=== PATIENT | male | born 1940 | race Caucasian/White ===

== ENCOUNTER 2017-01-19 15:05 | Inpatient (IN) | payer MEDICARE, OTHER ==
[2017-01-19 15:47] LABS: BASOPHILS 0.1 % (0.0-2.0); HEMATOCRIT 26.8 % (42.0-54.0); HEMOGLOBIN 9.2 g/dL (14.0-18.0); LYMPHOCYTES 3.7 % (20.0-40.0); LYMPHOCYTES# 0.5 X 10^3uL (0.8-3.8); MEAN CELL VOLUME 94.6 fL (80.0-100.0); MEAN CORPUS. HGB CONCENTRATION 34.4 g/dL (32.0-36.0); MEAN CORPUSCULAR HEMOGLOBIN 32.5 pg (29.0-35.0); MEAN PLATELET VOLUME 7.4 fL (7.4-10.4); MONOCYTES 13.4 % (2.0-10.0); MONOCYTES# 1.7 X 10^3uL (0.2-1.0); NEUTROPHILS 82.8 % (54.0-75.0); NEUTROPHILS# 10.2 X 10^3uL (2.6-6.7); RED BLOOD COUNT 2.83 X 10^6uL (4.20-6.10); WHITE BLOOD COUNT 12.4 X 10^3uL (3.9-10.7)
[2017-01-19 15:57] LABS: RED CELL DISTRIBUTION WIDTH 16.5 % (11.5-14.5)
[2017-01-19 15:58] LABS: A/G RATIO 0.9; ALBUMIN 3.4 g/dL (3.5-5.0); ALKALINE PHOSPHATASE 146 U/L (38-126); ALT 97 U/L (21-72); AST 111 U/L (17-59); BILIRUBIN, TOTAL 1.1 mg/dL (0.2-1.3); BLOOD UREA NITROGEN 11 mg/dL (9-20); CALCIUM 9.1 mg/dL (8.4-10.2); CHLORIDE 95 mmol/L (98-107); EST GLOMERULAR FILTRATION RATE > 60 mL/min; GLUCOSE 115 mg/dL (70-100); MAGNESIUM 2.2 mg/dL (1.6-2.3); PLATELET COUNT 738 X 10^3uL (130-440); POTASSIUM 3.5 mmol/L (3.5-5.1); SODIUM 133 mmol/L (137-145); TOTAL PROTEIN 7.4 g/dL (6.3-8.2)
[2017-01-19] MEDS ORDERED: ACETAMINOPHEN 500 MG TABLET PO ONE (16:22)
[2017-01-19] MEDS ORDERED: HOME MEDICATION LIST NEEDED 1 EA EACH MC ONE (17:33)
[2017-01-19] MEDS ORDERED: ALBUTEROL 0.083% 2.5 MG/3 ML VIAL.NEB NEB PRN (17:33)
[2017-01-19] MEDS ORDERED: AZITHROMYCIN 250 MG TABLET PO ONE (17:48)
[2017-01-19] MEDS ORDERED: cefTRIAXone SODIUM 1,000 MG/10 ML VIAL ONE (17:48)
[2017-01-19 17:50] LABS: BILIRUBIN, DIRECT 0.3 mg/dL (0.0-0.4); BILIRUBIN, TOTAL 1.1 mg/dL (0.2-1.3); TOTAL PROTEIN 6.4 g/dL (6.3-8.2)
[2017-01-19] MEDS ORDERED: NORMAL SALINE 100 ML IV ONE (17:52)
--- NOTE | 2017-01-19 18:15 | ER NURSING DOCUMENTATION ---
Nurse's Notes [facility] Name:Agusto Sesay Age:76 yrs Sex:Male :1940 Arrival Date:01/19/2017 Time:15:05 Bed4 Private MD:Chet Duarte Diagnosis:Pneumonia, Unspecified Presentation: 01/19 15:08 Presenting complaint: EMS states: pt with Altered Mental Status per medics, pt A and la Ox4 upon arrival to ED, unwitnessed fall, pt states he missed a stool when going to sit. Denies hitting head. pt with chronic neck pain and pain in his left shoulder, states left shoulder pain began this am before his fall. pt had a carotid stent placed at [facility] approx 12 days ago. Transition of care: Home. 15:08 Acuity: WARNER 2 la 15:08 Method Of Arrival: EMS: 410 la Triage Assessment: 15:15 General: Appears comfortable, Behavior is appropriate for age, cooperative. Pain: la Complains of pain in chronic neck, lidoderm patch on posterior neck, pain in left shoulder Alleviated by repositioning, Aggravated by increased activity, repositioning. EENT: No deficits noted. Neuro: Level of Consciousness is awake, alert, obeys commands, Oriented to person, place, time, event. Cardiovascular: No deficits noted. Respiratory: No deficits noted. Airway is patent Trachea midline Respiratory effort is even, unlabored, Respiratory pattern is regular, symmetrical, Breath sounds are clear bilaterally. GI: No deficits noted. : No deficits noted. Derm: No deficits noted. Musculoskeletal: Circulation, motion, and sensation intact Capillary refill < 3 seconds Range of motion limited in left shoulder. Historical: - Allergies: Pepcid; - Home Meds: 1. gabapentin oral 2. pravastatin oral 3. lupron 4. Omeprazole Oral - PMHx: lung cancer; - PSHx: Carotid surgery; - Tetanus: > 10 years. - Ebola Screening: : Patient negative for fever greater than or equal to 101.5 degrees Fahrenheit, and additional compatible Ebola Virus Disease symptoms. - Immunization history: Flu Vaccine < 1 year. - Social history: Smoking status: Patient uses tobacco products, current every day smoker. Screenin:17 Infectious Disease Risk None. Abuse screen: Denies threats or abuse. Nutritional la screening: No deficits noted. Assessment: 15:17 See Triage Assessment done by same RN. la 15:45 Reassessment: to xray. la Vital Signs: 15:14 Pulse Ox 98% on 2 lpm NC; la 15:14 BP 123 / 57 RA Supine; Pulse 93; Resp 18; Temp 101.7(O); Pulse Ox 79% on R/A; Weight la 65.77 kg (R); Height 5 ft. 10 in. (177.80 cm) (R); Pain 3/10; 16:01 BP 100 / 72 RA Supine; Pulse 85; Resp 18; Pulse Ox 95% on 2 lpm NC; Pain 3/10; la 17:31 BP 104 / 69 RA Supine; Pulse 93; Resp 18 S; Temp 98.9(O); Pulse Ox 93% on 2 lpm NC; la Pain 3/10; 17:48 BP 110 / 54 RA Supine; Pulse 85; Resp 18; Pulse Ox 94% on 2 lpm NC; Pain 3/10; la 18:09 BP 105 / 67 RA Sitting; Pulse 71; Resp 18; Temp 98.0(O); Pulse Ox 94% on 2 lpm NC; Pain la 3/10; 15:14 Body Mass Index 20.80 (65.77 kg, 177.80 cm) la Trauma Score (Adult): 15:10 Eye Response: spontaneous(1); Verbal Response: oriented(1); Motor Response: obeys la commands(2); Systolic BP: > 89 mm Hg(4); Respiratory Rate: 10 to 29 per min(4); Dolly Score: 15; Trauma Score: 12 ED Course: 15:05 Patient arrived in ED. em3 15:08 Angela Hathaway is Primary Nurse. la 15:10 Triage completed. la 15:10 Pulse Ox - RN Monitoring Only NIBP On - RN Monitoring Only. la 15:10 Maintain field IV. Dressing intact. Good blood return noted. Site clean & dry. Gauge & la site: 18g left AC. 15:10 unable to give urine sample at present. la 15:14 Chet Duarte MD is Private Physician. ds 15:14 Oxygen Oxygen administration via nasal cannula @ 2L/min. la 15:17 Valuables Remains with patient Patient has correct armband on for positive la identification. Placed in gown. Bed in low position. Call light in reach. Side rails up X2. Door closed. Verbal reassurance given. Warm blanket given. Pillow given. 15:19 Wojciech Dyson MD is Attending Physician. tl1 15:35 First set of blood cultures drawn by me. la 15:40 Second set of blood cultures drawn Earle EMT. la 16:35 All Skinner MD is Admitting Physician. tl1 18:01 Carla Cedeño MD motion picture projectionist apprentice. al Administered Medications: 16:13 Drug: Tylenol 1000 mg; Route: PO; la 16:24 Follow up: Response: No adverse reaction la 17:54 Follow up: Response: Temperature is decreased la 17:40 Dru grams of (cefTRIAXone 1 grams, NS 0.9% 100 ml); Route: IVPB; Infused Over: 30 la mins; Site: left antecubital; 17:54 Follow up: Response: No adverse reaction la 18:15 Follow up: IV Status: Infusion continued upon admission la 17:40 Drug: Zithromax 500 mg; Route: PO; la 17:54 Follow up: Response: No adverse reaction la Intake: 16:30 IV: 1000ml; Total: 1000ml. la Outcome: 16:57 Decision to Admit by Provider. tl1 18:12 Admitted to Med/surg accompanied by nurse. la 18:12 Condition: good 18:12 Report given to Krysten HUANG 18:12 Discharge Assessment: Patient awake, alert and oriented x 3. No cognitive and/or functional deficits noted. Patient verbalized understanding of disposition instructions. 18:14 Patient left the ED. la Signatures: Flor Sepulveda, Reg Reg ds Carla Cedeño MD MD al Meiklejohn, Earle em3 Angela Hathaway Tom, MD MD tl1
--- NOTE | 2017-01-19 19:37 | RADIOLOGY REPORT ---
Two views of the chest are compared with prior films dated 01/09/2013. The heart and vessels are stable and unremarkable. There has been interval development of bibasilar infiltrates, left greater than right. The upper lung rudolph are clear. No fluid or pneumothorax is seen. IMPRESSION: Development of bibasilar infiltrates, left greater than right. MTDD
--- NOTE | 2017-01-19 19:46 | RADIOLOGY REPORT ---
Trauma series of the cervical spine is obtained. Examination is markedly limited due to levoscoliosis and extensive diffuse degenerative changes throughout the disk spaces and posterior facets. No gross displaced injury is identified. Calcification of the carotid arteries is noted with left carotid stent also noted. IMPRESSION: Extensive chronic changes as described markedly limiting the examination. No gross displaced injury is identified. If there is any concern for traumatic injury, further evaluation with CT scanning is highly recommended for its markedly increased accuracy. The findings were personally reviewed with Dr. Cedeño at 1815 hours on 2016. JAMIE
[2017-01-19] MEDS: cefTRIAXone SODIUM 1,000 MG in NORMAL SALINE MINI-BAG+ 100 ML IV SCH (20:15)
[2017-01-19] MEDS: NORMAL SALINE 1,000 ML IV SCH (20:16)
[2017-01-19] MEDS: GUAIFENESIN ER 600 MG TABLET PO SCH (20:16)
[2017-01-19] MEDS: PRAVASTATIN SODIUM 40 MG TABLET PO SCH (21:50)
[2017-01-19] MEDS: GABAPENTIN 300 MG CAPSULE PO SCH (21:50)
[2017-01-19] MEDS ORDERED: O2 HUMIDIFIER 650 ML BOTTLE INHALATION ONE (22:12)
[2017-01-19 23:00] LABS: URINE MUCUS NONE SEEN (Up to 25%); URINE RBC NONE SEEN (0-5/hpf); URINE SQUAMOUS EPITHELIAL CELL NONE SEEN (<= 15/hpf)
[2017-01-19 23:10] LABS: URINE APPEARANCE CLEAR; URINE BACTERIA <10 ORGANISMS/hpf (<10/hpf); URINE BILIRUBIN 0.5 mg/100ml (1+) (NEGATIVE); URINE BLOOD NEGATIVE (NEGATIVE); URINE COLOR DARK YELLOW; URINE GLUCOSE NORMAL (NEGATIVE); URINE KETONE 5mg/dL (NEGATIVE); URINE LEUKOCYTE ESTERASE NEGATIVE (NEGATIVE); URINE NITRITE NEGATIVE (NEGATIVE); URINE PH 5.5 (5-7); URINE PROTEIN 30mg/dL (1+) (NEG - TRACE); URINE UROBILINOGEN 1mg/dL (Normal) (NEG-1mg/dL); URINE WBC 0-4/hpf (0-4/hpf)
[2017-01-19 23:11] LABS: URINE AMORPHOUS SEDIMENT UP TO 50%/lpf (Up to 25%)
[2017-01-20] MEDS: NORMAL SALINE 1,000 ML IV SCH (05:00)
[2017-01-20 06:07] LABS: BASOPHILS 0.4 % (0.0-2.0); EOSINOPHILS 0.1 % (0.0-6.0); HEMOGLOBIN 8.2 g/dL (14.0-18.0); LYMPHOCYTES 5.1 % (20.0-40.0); LYMPHOCYTES# 0.5 X 10^3uL (0.8-3.8); MEAN CELL VOLUME 95.5 fL (80.0-100.0); MEAN CORPUS. HGB CONCENTRATION 34.1 g/dL (32.0-36.0); MEAN CORPUSCULAR HEMOGLOBIN 32.6 pg (29.0-35.0); MONOCYTES 11.9 % (2.0-10.0); MONOCYTES# 1.3 X 10^3uL (0.2-1.0); NEUTROPHILS 82.5 % (54.0-75.0); NEUTROPHILS# 8.8 X 10^3uL (2.6-6.7); RED BLOOD COUNT 2.52 X 10^6uL (4.20-6.10); WHITE BLOOD COUNT 10.6 X 10^3uL (3.9-10.7)
[2017-01-20 06:18] LABS: PLATELET COUNT 721 X 10^3uL (130-440)
[2017-01-20 06:21] LABS: ALBUMIN 2.8 g/dL (3.5-5.0); ALKALINE PHOSPHATASE 118 U/L (38-126); ALT 80 U/L (21-72); AST 73 U/L (17-59); BILIRUBIN, DIRECT 0.2 mg/dL (0.0-0.4); BILIRUBIN, TOTAL 0.8 mg/dL (0.2-1.3); BLOOD UREA NITROGEN 8 mg/dL (9-20); CALCIUM 8.2 mg/dL (8.4-10.2); CHLORIDE 99 mmol/L (98-107); EST GLOMERULAR FILTRATION RATE > 60 mL/min; GLUCOSE 97 mg/dL (70-100); POTASSIUM 3.1 mmol/L (3.5-5.1); SODIUM 135 mmol/L (137-145); TOTAL PROTEIN 6.5 g/dL (6.3-8.2)
[2017-01-20 06:27] LABS: C-REACTIVE PROTEIN > 90.0 mg/L (<10.0)
[2017-01-20] MEDS ORDERED: POTASSIUM CHLORIDE ER 20 MEQ TABLET PO ONE ×2 (07:40→09:00)
--- NOTE | 2017-01-20 07:50 | HISTORY & PHYSICAL ---
DATE OF ADMISSION: 01/19/17 ATTENDING PHYSICIAN: Carla Cedeño MD ADMITTING DIAGNOSES 1. Fever. 2. Hypoxia. 3. Probable pneumonia. HISTORY OF PRESENT ILLNESS: Patient is a 76-year-old male, with a very complicated medical history who has recently had a right carotid stent placement , about 2 weeks ago, and really has not been doing well at home since that time. He was brought to the Emergency Room today after his called EMS because the patient fell and has fallen multiple times, she thinks about 4 times , in the past couple of weeks. She was not with him when he fell, but he gives a somewhat rambling story about falling off of a stool. EMS was called and they noticed that he seemed confused and disoriented and brought him to the Emergency Room. In the Emergency Room he was noted to be febrile at 101.7F and noted to have some confusion and some hypoxia. He was 79% on room air when he initially arrived and on 2 liters 98%. He has had some chronic coughing, and has an underlying history of lung cancer but denies any recent coughing that was worse than normal and certainly no productive cough. He denies any increase in shortness of breath, but his history is difficult. His seems a little confused, but does not think that he has seemed more short of breath. The main complaint of the patient and the , is that the patient has had severe neck pain. This is on the right side and stated it started a few days after his carotid stent was placed, and they feel that maybe he "pulled his neck." He denies any particular injury to his neck. The pain was so bad that he went to the Emergency Room at [facility] on 01/13/17 and due to the concerns of potential carotid dissection after his stent placement, they did a CTA of the neck. That was reported as not showing any problem with his carotid arteries or vertebral arteries, and that he had diffuse degenerative disk disease. No particular concerns were reported with regards to the neck and spine. He has been seen in the past few days by Dr. Duarte who gave him a muscle relaxant in the form of Tizanidine. The patient has sinusitis noted on his CT of the neck that was done at [facility], giving him a potential source for fever and pneumonia. He denies any headaches, and he was not aware that he had fever. He states that his neck hurts the most when he tips it backwards and it feels particularly annoying on the right side. The patient's prostate cancer is metastatic, and he is being treated with Enzalutamide and with Lupron injections intermittently and is followed by Dr. Francis. Earlier this year he did have an MRI of the brain and has fairly recently had a bone scan done which did not show lesions in the cervical spine that I can determine. He also had a scan of the chest, abdomen and pelvis in November of this year showing atherosclerotic calcifications of the aorta and branch vessels including coronary arteries, with dense involvement of the left anterior descending and circumflex. He had benign bilateral biapical pleural parenchymal scarring and emphysema and scattered reticular nodular changes throughout each lung. He has an endobronchial lesion within the anterolateral basal left lower lobe measuring 3 x 3 x 7.4 cm and multiple mild vertebral compression deformities of the inferior thoracic region which appeared chronic in appearance. Abdominal CT was normal. There was also reported stable mediastinal adenopathy. ALLERGIES: Pepcid MEDICATIONS Aspirin 81 mg p.o. daily. Atorvastatin 40 mg daily. Calcium with vitamin D 600-400 International Units daily. Plavix 75 mg daily. Enzalutamide 40 mg 4 daily. Gabapentin 300 mg 1 in the morning and 3 at night. Multivitamin 1 daily. Omeprazole 20 mg daily. Pravastatin 40 mg at h.s. Tylenol extra strength 2 twice daily. PAST MEDICAL HISTORY 1. History of bladder cancer, followed by Dr. Jaramillo, seemingly not an issue at this time. 2. Metastatic hormone resistant prostate cancer treated with Enzalutamide. 3. Squamous cell carcinoma of the left lung with increasing size of the mass. He has had radiation therapy. 4. Peripheral vascular disease with the carotid problem just treated on the left. 5. 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 6. Carotid artery stenosis with an 80% left sided lesion, status post angioplasty and stent in December 2016 under the care of Dr. Richey. 7. History of chronic alcoholism, sober since 2010 with a history of hepatic encephalopathy and DTs. 8. Chronic total retinal detachment on the right side in 2003, repaired twice. 9. 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 10. History of depression. 11. History of duodenal ulcer in 2010. 12. Hyperlipidemia treated with Atorvastatin. 13. Hypotestosteronism treated by Dr. Francis in 2013. 14. Stage IV lung cancer which is squamous cell. 15. Osteoarthritis. 16. Osteopenia with a history of vertebral compression fractures. 17. Idiopathic peripheral neuropathy. 18. 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 19. History of rib fracture in 2010. 20. Remote history of seizure in 1960. 21. Skull fracture in 1949 with coma for a month and deaf in the left ear since then. 22. Corneal ulcer in 2016. PAST SURGICAL HISTORY 1. Bladder cancer surgery per Dr. Jaramillo. I do not have details of that. 2. Cataract surgery on the right eye. 3. Open reduction, internal fixation for a left foot fracture. 4. Retinal detachment repair. 5. Tonsillectomy. SOCIAL HISTORY: He is . His accompanies him today. He has a living will and is do not resuscitate and has a Medical Power of [employer] according to the chart, but when I ask him today, he thinks he is a full code. He currently does not drink any alcohol. He has 3 grown children. 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 He is a smoker, who smokes less than a pack a day. REVIEW OF SYSTEMS: Fever as noted above, although the patient was not aware when I ask him. No headaches. No changes in vision. No oral lesions. He has a dry mouth. He has had the neck pain and he reports difficulty in flexion and feels that he pulled his neck or slept on it wrong with pain on the right side. He denies any increase in shortness of breath. He has a chronic cough. He has no chest pain or palpations. He has no abdominal pain. He tells me that he moved his bowels a week ago. He has had no dysuria or hematuria. He has had unsteadiness of gait and falls about 4 times his thinks, but denies any particular weakness. He tends to stumble she thinks. PHYSICAL EXAMINATION VITAL SIGNS: Temperature on arrival to the Emergency Room was recorded as 98.9 although noted to be 101.7 by EMS crew. O2 saturation was noted to be 79% on room air. Blood pressure on arrival was noted to be 123/57, pulse 93, respiratory rate 18, blood pressure is currently 110/54, pulse 85, respiratory rate 18, O2 saturation currently is 94% on 2 liters. GENERAL: The patient is somewhat restless in the bed and seems mildly confused. He is alert. At times he is oriented but then seems a little confused. He is holding his head tipped to the right. HEENT: Extraocular movements are intact. Pupils are minimally reactive. Sclera are anicteric. Oropharynx is dry without lesions. NECK: Markedly tender posteriorly. No jugular venous distention noted. No bruits noted. LUNGS: Decreased breath sounds throughout and scattered mild rhonchi clear to percussion except at the bases. CARDIOVASCULAR: Distant S1, S2. Regular, no murmurs, rubs or gallops appreciated. ABDOMEN: Soft, nontender. Bowel sounds are normoactive. : No testicular masses. RECTAL: Could not palpate prostate. Area was soft and nontender. Stool was light , yellow almost white and heme negative. EXTREMITIES: No cyanosis, clubbing or edema. Dorsalis pedis pulses are feeble. Tibialis posterior pulses were 2+. There was no edema. NEUROLOGIC: Patient was oriented when he focused, but seemed to ramble at times. His neck was tender but not particularly stiff. He had a negative Kernig and Brudzinski signs on exam. Well oriented after a few minutes. Cranial nerves grossly intact. Motor strength 5/5. Gait was not tested. Deep tendon reflexes were 1+ and symmetric. DATA: CBC shows a white count of 12,400 with a left shift with 83% neutrophils, 4% lymphocytes. Hemoglobin is markedly decreased from previous at 9.2, hematocrit 26.8. A few days ago his hemoglobin was 11.1 and prior to that it was 13.9 but he denies any melena or hematochezia. CMP shows a sodium of 133, chloride of 95, potassium 3.5, glucose 115 nonfasting. ALT is 97, alkaline phosphatase 146, AST 111, magnesium 2.2, BNP-pro 1,690. Elevation in hepatic enzymes is also new for the patient since 01/04/17. Last PSA was 1.42. IMAGING: Chest x-ray shows some patchy infiltrates and mass in the base without very consolidated area noted. ASSESSMENT AND PLAN 1. Febrile patient: With the neck pain there was of course concern for meningitis. He has had no headaches. He was seen in [facility] on 01/13/17 with a CTA of the neck not showing any areas of concern, and I did review those notes and that report. I am not convinced that the patient does have pneumonia, particularly in light of his mildly elevated hepatic enzymes, and I feel that he should have a gallbladder ultrasound ordered, even though he is not tender, for the potential of cholelithiasis with an atypical presentation. He has been given Azithromycin and Rocephin in the Emergency Room and is being hydrated with normal saline. I was somewhat inclined to have him sent to a larger facility but his is pretty emphatic that she would like him to be here. 2. Patient has developed a marked anemia. He was heme negative on exam today and his stool was actually white and yellow. Nevertheless, this is a big change , and he appears to have a reactive thrombocytosis as well. This will need further evaluation. 3. Multiple cancers with progression. He will continue his follow up with his Oncologist and radiation oncology. 4. Peripheral neuropathy. Patient will be continued on Gabapentin. 5. Peripheral artery disease. Currently doing better and on Plavix and aspirin without active bleeding that I could find. I did continue both of these. 6. Code status is in the chart as do not resuscitate. Nevertheless, when I ask the patient he did not state that and stated that he had a living will, but I am leaving him as a full code pending further discussion. 7. Neck pain. The neck is tender, but we have had a CT scan that did not show any suggestion of metastatic disease, nor of injury nor of infection in that area. Without a headache, he does not seem a likely candidate to have meningitis. I will provide him with some analgesics, and we will see if he needs further evaluation if the problem persists. 8. Deep vein thrombosis prophylaxis. Until I find the cause of his anemia, I am only going to use SCDs at this time, as he is already taking Plavix and aspirin and I do not wish to add Lovenox to that mix until the anemia is explained. 9. Dr. Duarte will resume care in the morning. JAMIE
[2017-01-20 08:43] LABS: ABO GROUP TYPE A; ANTIBODY SCREEN NEGATIVE; CROSSMATCH IMMEDIATE SPIN COMPATIBLE; RH TYPE POSITIVE
[2017-01-20 08:44] LABS: CROSSMATCH IMMEDIATE SPIN COMPATIBLE
[2017-01-20] MEDS ORDERED: POTASSIUM CHLORIDE ER 20 MEQ TABLET PO SCH (09:00)
[2017-01-20] MEDS: PANTOPRAZOLE 40 MG TABLET PO SCH (09:15)
[2017-01-20] MEDS: POTASSIUM CHLORIDE/NS 20 MEQ/1,000 ML BAG IV SCH (09:15)
[2017-01-20 09:41] LABS: IRON 26 ug/dL (49-181)
[2017-01-20 09:51] LABS: TOTAL IRON BINDING CAPACITY 153 ug/mL (250-400); TRANSFERRIN 103 mg/dL (206-381); TRANSFERRIN SATURATION 17 % (14-50)
--- NOTE | 2017-01-20 11:30 | US REPORT ---
Routine abdominal ultrasound was performed. No prior study is available for comparison. The liver appears normal in size, but somewhat heterogeneous, raising concern for fatty infiltration. No discrete mass or cyst is seen. The gallbladder is distended, measuring 10.5 cm x 5.0 cm x 5.4 cm. No stones, wall thickening or duct dilatation is identified. Both kidneys appear normal in size and blood flow. No mass, cyst or hydronephrosis is identified. The spleen, pancreas and aorta are essentially obscured by overlying bowel content. IMPRESSION: 1. Examination is significantly limited to overlying bowel content. Further evaluation with CT scanning may be of benefit. 2. Mild distention of the gallbladder without obstructing lesion identified. Further evaluation with MRCP may be of benefit. 3. Heterogeneous appearance to the liver raises concern for fatty infiltration. MTDD
--- NOTE | 2017-01-20 13:49 | MRI REPORT ---
History: Increased liver function tests. Anemia. Dilated gallbladder. Previous carotid stent. Metastatic prost ate cancer. COMPARISON: Ultrasound dated 01/20/2017 TECHNIQUE: Multiplanar multi sequential imaging of the abdomen obtained, reformat MIP images of the biliary syst em evaluated. FINDINGS: Bilateral pleural effusions are partially imaged on this study. There is left lower lobe airspace op[place] that is incompletely characterized on this examination but suspicious for an underlying pulmonar y mass. The gallbladder is markedly dilated. No filling defects identified the gallbladder. Common bile duct measures up to 7 mm. Intrahepatic bile ducts appear mildly dilated. Foci of T2 signal hyperintensity in the right hepatic lobe are too small to definitively characterize but probably small cysts or hemangiomas. Pancreatic duct is mildly prominent. No pancreatic mass taylor ntified. Kidneys, adrenal glands and spleen appear normal Postcontrast images show no abnormal enhancement. IMPRESSION: 1. Dilated gallbladder and biliary tree without obstructing lesion or stone identified. If there is c linical evidence of biliary obstruction, ERCP may be warranted to exclude an occult obstruction. 2. Bilateral pleural effusions. 3. Left lower lobe airspace opacity suspicious for underlying mass. Consider CT of the chest with con trast for definitive characterization. Final Electronic Signature: This report was electronically signed by Maico Churchill MD on 01/20/2017 1:47 PM. sonia /
[2017-01-20] MEDS: GUAIFENESIN ER 600 MG TABLET PO SCH ×2 (14:09→17:14)
[2017-01-20] MEDS: GABAPENTIN 300 MG CAPSULE PO SCH ×2 (14:09→20:08)
[2017-01-20] MEDS: AZITHROMYCIN 250 MG TABLET PO SCH (14:09)
[2017-01-20] MEDS: CLOPIDOGREL BISULFATE 75 MG TABLET PO SCH (14:09)
[2017-01-20 16:31] LABS: FOLATES 9.8 ng/mL (3.0-16.0)
[2017-01-20] MEDS: FUROSEMIDE 20 MG/2 ML VIAL IV PRN ×2 (16:53→20:08)
[2017-01-20] MEDS: cefTRIAXone SODIUM 1,000 MG in NORMAL SALINE MINI-BAG+ 100 ML IV SCH (17:12)
--- NOTE | 2017-01-20 18:15 | PROGRESS NOTE: IM SOAP ---
IM: PN Subjective Interval history: Neck pain, awaiting PT No F/C Hypoxia on O2 Confusion resolved Dry cough No abd pain. Had BM but pt uncertain of color. IM: PN Objective Exam - I&O/Vital Signs I&O: Intake & Output 01/20/17 01/20/17 01/20/17 05:59 13:59 21:59 Intake Total 1408 440 Output Total 600 Balance 808 440 Intake: IV 1183 Left Forearm 1183 Oral 225 Blood Product 440 Output: Urine 600 Other: Urine Appearance Clear Urine Color Dark Yen Voiding Method Urinal Vital Signs: Last Vital Signs Temp 36.7 C 01/20/17 17:43 Pulse 91 H 01/20/17 17:43 Resp 20 01/20/17 17:43 BP 139/84 01/20/17 17:43 Pulse Ox 90 01/20/17 17:43 Oxygen Flow Rate 2 Oxygen Delivery Method Nasal Cannula - Neck Neck exam: Present: tenderness (bilat paracervical muscles). Absent: full ROM ( pain with neck extension and rotation), lymphadenopathy - Respiratory Respiratory exam: Present: decreased breath sounds (bibasilar). Absent: rales, rhonchi, wheezes - Cardiovascular Cardiovascular exam: Present: RRR. Absent: systolic murmur - GI/Abdominal GI/Abdominal exam: Present: normal bowel sounds, soft. Absent: organomegaly, tenderness (no RUQ or epigastric tenderness) - Extremities Exam Extremities exam: Absent: calf tenderness, Deborah's Sign, edema - Lab Labs: Laboratory Last Values WBC 10.6 X 10^3uL (3.9-10.7) 01/20/17 05:55 RBC 2.52 X 10^6uL (4.20-6.10) L 01/20/17 05:55 Hgb 8.2 g/dL (14.0-18.0) L 01/20/17 05:55 Hct 24.0 % (42.0-54.0) L 01/20/17 05:55 MCV 95.5 fL (80.0-100.0) 01/20/17 05:55 MCH 32.6 pg (29.0-35.0) 01/20/17 05:55 MCHC 34.1 g/dL (32.0-36.0) 01/20/17 05:55 RDW 16.0 % (11.5-14.5) H 01/20/17 05:55 Plt Count 721 X 10^3uL (130-440) H 01/20/17 05:55 MPV 7.0 fL (7.4-10.4) L 01/20/17 05:55 Neutrophils % 82.5 % (54.0-75.0) H 01/20/17 05:55 Lymphocytes % 5.1 % (20.0-40.0) L 01/20/17 05:55 Eosinophils % 0.1 % (0.0-6.0) 01/20/17 05:55 Basophils % 0.4 % (0.0-2.0) 01/20/17 05:55 Neutrophils # 8.8 X 10^3uL (2.6-6.7) H 01/20/17 05:55 Lymphocytes # 0.5 X 10^3uL (0.8-3.8) L 01/20/17 05:55 Monocytes 11.9 % (2.0-10.0) H 01/20/17 05:55 Monocytes # 1.3 X 10^3uL (0.2-1.0) H 01/20/17 05:55 Eosinophils # 0.0 X 10^3uL (0.0-0.4) 01/20/17 05:55 Basophils # 0.0 X 10^3uL (0.0-0.1) 01/20/17 05:55 Sodium 135 mmol/L (137-145) L 01/20/17 05:55 Potassium 3.1 mmol/L (3.5-5.1) L 01/20/17 05:55 Chloride 99 mmol/L (98-107) 01/20/17 05:55 Carbon Dioxide 23 mmol/L (22-30) 01/20/17 05:55 BUN 8 mg/dL (9-20) L 01/20/17 05:55 Creatinine 0.6 mg/dL (0.7-1.3) L 01/20/17 05:55 GFR Calculation > 60 mL/min 01/20/17 05:55 Glucose 97 mg/dL (70-100) 01/20/17 05:55 Calcium 8.2 mg/dL (8.4-10.2) L 01/20/17 05:55 Magnesium 2.2 mg/dL (1.6-2.3) 01/19/17 15:15 Iron 26 ug/dL (49-181) L 01/20/17 05:55 TIBC 153 ug/mL (250-400) L 01/20/17 05:55 Transferrin 103 mg/dL (206-381) L 01/20/17 05:55 Transferrin % Sat 17 % (14-50) 01/20/17 05:55 Total Bilirubin 0.8 mg/dL (0.2-1.3) 01/20/17 05:55 Direct Bilirubin 0.2 mg/dL (0.0-0.4) 01/20/17 05:55 AST 73 U/L (17-59) H 01/20/17 05:55 ALT 80 U/L (21-72) H 01/20/17 05:55 Alkaline Phosphatase 118 U/L (38-126) 01/20/17 05:55 C-Reactive Protein > 90.0 mg/L (<10.0) H 01/20/17 05:55 NT-Pro-B Natriuret Pep 1960 pg/mL (<450) H 01/20/17 05:55 Total Protein 6.5 g/dL (6.3-8.2) 01/20/17 05:55 Albumin 2.8 g/dL (3.5-5.0) L 01/20/17 05:55 Albumin/Globulin Ratio 0.9 01/19/17 15:15 Vitamin B12 755 pg/mL (230-1050) 01/20/17 05:55 Folic Acid 9.8 ng/mL (3.0-16.0) 01/20/17 05:55 Urine Color Dark yellow A 01/19/17 22:00 Urine Appearance Clear 01/19/17 22:00 Urine pH 5.5 (5-7) 01/19/17 22:00 Ur Specific [place] 1.020 (0.001-1.035) 01/19/17 22:00 Urine Protein 30mg/dl (1+) (NEG - TRACE) A 01/19/17 22:00 Urine Ketones 5mg/dl (NEGATIVE) A 01/19/17 22:00 Urine Blood Negative (NEGATIVE) 01/19/17 22:00 Urine Nitrate Negative (NEGATIVE) 01/19/17 22:00 Urine Bilirubin 0.5 mg/100ml (1+) (NEGATIVE) A 01/19/17 22:00 Urine Urobilinogen 1mg/dl (normal) (NEG-1mg/dL) 01/19/17 22:00 Ur Leukocyte Esterase Negative (NEGATIVE) 01/19/17 22:00 Urine RBC None seen (0-5/hpf) 01/19/17 22:00 Urine WBC 0-4/hpf (0-4/hpf) 01/19/17 22:00 Ur Squamous Epith Cells None seen (<= 15/hpf) 01/19/17 22:00 Amorphous Sediment Up to 50%/lpf (Up to 25%) 01/19/17 22:00 Urine Bacteria <10 organisms/hpf (<10/hpf) 01/19/17 22:00 Urine Mucus None seen (Up to 25%) 01/19/17 22:00 Urine Glucose Normal (NEGATIVE) 01/19/17 22:00 ABO Group Type a 01/20/17 05:55 Rh Factor Positive 01/20/17 05:55 Antibody Screen Negative 01/20/17 05:55 Crossmatch Compatible 01/20/17 05:55 Assessment and Plan - Date of Encounter Date of Encounter: 01/20/17 (1) Fall Status: Acute Assessment and plan: Probably multifactorial including hypoxia and anemia. No serious injury. Neck pain started prior to fall. Current Visit: Yes (2) Hypoxia Status: Acute Assessment and plan: O2, bld transfusion. Current Visit: Yes (3) Anemia Status: Acute Assessment and plan: 2 unit pRBC iron deficiency - consider workup but will check with oncology first Current Visit: Yes (4) Fever Status: Acute Assessment and plan: Resolved. Normal WBC count. No obvious source. Cultures pending Currently on Rocephin, Zpack. Current Visit: Yes (5) Lung cancer Status: Chronic Current Visit: Yes (6) Prostate cancer Status: Chronic Current Visit: Yes (7) Bladder cancer Status: Chronic Current Visit: Yes (8) Carotid stenosis Status: Chronic Assessment and plan: Recent L CEA No CVA Current Visit: Yes (9) PAD (peripheral artery disease) Status: Acute Assessment and plan: Symptomatic claudication. Follow up with cardiology. Current Visit: Yes (10) LFT elevation Status: Acute Assessment and plan: Ultrasound showed dilated GB, but no dilated CBD or intrahepatic ducts MRCP showed dilated GB, but no obstruction of CBD Etiology not clear. Possibly cancer related. Current Visit: Yes (11) Dilated gallbladder Status: Acute Current Visit: Yes - Time Spent With Patient Total time spent with greater than 50% in coordination of care (as documented) at patient's floor/unit and/or counseling patient: Quality Questions - VTE Prophylaxis Assessment VTE Present on Admission?: No Patient at risk for venous thromboembolism?: Yes VTE Risk Level: High Risk Pharmaceutical VTE prophylaxis contraindication reason: contraindicated Mechanical VTE prophylaxis contraindication reason: N/A- VTE prophylaxsis ordered (3) Anemia Qualifiers: Anemia type: iron deficiency
[2017-01-20] MEDS: PRAVASTATIN SODIUM 40 MG TABLET PO SCH (20:08)
[2017-01-20] MEDS: ACETAMINOPHEN 325 MG TABLET PO PRN (23:29)
[2017-01-21] MEDS: POTASSIUM CHLORIDE/NS 20 MEQ/1,000 ML BAG IV SCH ×2 (05:00→18:30)
[2017-01-21] MEDS: PANTOPRAZOLE 40 MG TABLET PO SCH (05:31)
[2017-01-21] MEDS: GUAIFENESIN ER 600 MG TABLET PO SCH ×2 (05:31→17:41)
[2017-01-21 06:55] LABS: BASOPHIL# 0.3 X 10^3uL (0.0-0.1); EOSINOPHILS 0.1 % (0.0-6.0); HEMATOCRIT 39.2 % (42.0-54.0); HEMOGLOBIN 13.5 g/dL (14.0-18.0); LYMPHOCYTES 4.1 % (20.0-40.0); LYMPHOCYTES# 0.5 X 10^3uL (0.8-3.8); MEAN CELL VOLUME 92.9 fL (80.0-100.0); MEAN CORPUS. HGB CONCENTRATION 34.5 g/dL (32.0-36.0); MEAN CORPUSCULAR HEMOGLOBIN 32.1 pg (29.0-35.0); MEAN PLATELET VOLUME 7.6 fL (7.4-10.4); MONOCYTES 10.4 % (2.0-10.0); MONOCYTES# 1.3 X 10^3uL (0.2-1.0); NEUTROPHILS 83.4 % (54.0-75.0); NEUTROPHILS# 10.4 X 10^3uL (2.6-6.7); RED BLOOD COUNT 4.22 X 10^6uL (4.20-6.10); RED CELL DISTRIBUTION WIDTH 17.5 % (11.5-14.5)
[2017-01-21 07:00] LABS: A/G RATIO 0.8; ALBUMIN 3.2 g/dL (3.5-5.0); ALKALINE PHOSPHATASE 130 U/L (38-126); ALT 89 U/L (21-72); AST 108 U/L (17-59); BILIRUBIN, TOTAL 1.1 mg/dL (0.2-1.3); BLOOD UREA NITROGEN 8 mg/dL (9-20); CALCIUM 8.6 mg/dL (8.4-10.2); CHLORIDE 97 mmol/L (98-107); EST GLOMERULAR FILTRATION RATE > 60 mL/min; GLUCOSE 104 mg/dL (70-100); POTASSIUM 3.3 mmol/L (3.5-5.1); SODIUM 136 mmol/L (137-145); TOTAL PROTEIN 7.2 g/dL (6.3-8.2)
[2017-01-21 07:01] LABS: AMYLASE < 30 U/L (30-110)
[2017-01-21 07:27] LABS: PLATELET COUNT 674 X 10^3uL (130-440); WHITE BLOOD COUNT 12.5 X 10^3uL (3.9-10.7)
[2017-01-21] MEDS: POTASSIUM CHLORIDE ER 20 MEQ TABLET PO SCH (10:44)
[2017-01-21] MEDS: AZITHROMYCIN 250 MG TABLET PO SCH (10:45)
[2017-01-21] MEDS: GABAPENTIN 300 MG CAPSULE PO SCH ×2 (10:45→21:17)
[2017-01-21] MEDS: CLOPIDOGREL BISULFATE 75 MG TABLET PO SCH (10:45)
--- NOTE | 2017-01-21 13:09 | PROGRESS NOTE: IM SOAP ---
IM: PN Subjective Interval history: Neck pain, PT No F/C Hypoxia on O2 Confusion resolved Dry cough, resolved No abd pain. Had brown BM Only able to take several steps, but not able to get to BR or door into hallway yet IM: PN Objective Exam - I&O/Vital Signs I&O: Intake & Output 01/20/17 01/21/17 01/21/17 21:59 05:59 13:59 Intake Total 2325 894 Output Total 930 2125 Balance 1395 -1231 Intake: IV 375 694 Left Forearm 375 694 Oral 570 200 Blood Product 1380 Output: Urine 930 2125 Other: Urine Appearance Clear Clear Urine Color Pale Yellow Yellow Light Yen Stool Size Moderate Stool Characteristics Soft Voiding Method Urinal Urinal # Bowel Movements 1 Vital Signs: Last Vital Signs Temp 36.8 C 01/21/17 11:00 Pulse 101 H 01/21/17 11:00 Resp 20 01/21/17 11:00 BP 146/81 01/21/17 11:00 Pulse Ox 88 L 01/21/17 11:53 Oxygen Flow Rate 2 Oxygen Delivery Method Nasal Cannula - Neck Neck exam: Present: tenderness (bilat paracervical muscles). Absent: full ROM ( pain with neck extension and rotation), lymphadenopathy - Respiratory Respiratory exam: Present: decreased breath sounds (bibasilar). Absent: rales, rhonchi, wheezes - Cardiovascular Cardiovascular exam: Present: RRR. Absent: systolic murmur - GI/Abdominal GI/Abdominal exam: Present: normal bowel sounds, soft. Absent: organomegaly, tenderness (no RUQ or epigastric tenderness) - Extremities Exam Extremities exam: Absent: calf tenderness, Deborah's Sign, edema - Lab Labs: Laboratory Last Values WBC 12.5 X 10^3uL (3.9-10.7) H 01/21/17 06:07 RBC 4.22 X 10^6uL (4.20-6.10) 01/21/17 06:07 Hgb 13.5 g/dL (14.0-18.0) L 01/21/17 06:07 Hct 39.2 % (42.0-54.0) L 01/21/17 06:07 MCV 92.9 fL (80.0-100.0) 01/21/17 06:07 MCH 32.1 pg (29.0-35.0) 01/21/17 06:07 MCHC 34.5 g/dL (32.0-36.0) 01/21/17 06:07 RDW 17.5 % (11.5-14.5) H 01/21/17 06:07 Plt Count 674 X 10^3uL (130-440) H 01/21/17 06:07 MPV 7.6 fL (7.4-10.4) 01/21/17 06:07 Neutrophils % 83.4 % (54.0-75.0) H 01/21/17 06:07 Lymphocytes % 4.1 % (20.0-40.0) L 01/21/17 06:07 Eosinophils % 0.1 % (0.0-6.0) 01/21/17 06:07 Basophils % 2.0 % (0.0-2.0) 01/21/17 06:07 Neutrophils # 10.4 X 10^3uL (2.6-6.7) H 01/21/17 06:07 Lymphocytes # 0.5 X 10^3uL (0.8-3.8) L 01/21/17 06:07 Monocytes 10.4 % (2.0-10.0) H 01/21/17 06:07 Monocytes # 1.3 X 10^3uL (0.2-1.0) H 01/21/17 06:07 Eosinophils # 0.0 X 10^3uL (0.0-0.4) 01/21/17 06:07 Basophils # 0.3 X 10^3uL (0.0-0.1) H 01/21/17 06:07 Sodium 136 mmol/L (137-145) L 01/21/17 06:07 Potassium 3.3 mmol/L (3.5-5.1) L 01/21/17 06:07 Chloride 97 mmol/L (98-107) L 01/21/17 06:07 Carbon Dioxide 26 mmol/L (22-30) 01/21/17 06:07 BUN 8 mg/dL (9-20) L 01/21/17 06:07 Creatinine 0.6 mg/dL (0.7-1.3) L 01/21/17 06:07 GFR Calculation > 60 mL/min 01/21/17 06:07 Glucose 104 mg/dL (70-100) H 01/21/17 06:07 Calcium 8.6 mg/dL (8.4-10.2) 01/21/17 06:07 Magnesium 2.2 mg/dL (1.6-2.3) 01/19/17 15:15 Iron 26 ug/dL (49-181) L 01/20/17 05:55 TIBC 153 ug/mL (250-400) L 01/20/17 05:55 Transferrin 103 mg/dL (206-381) L 01/20/17 05:55 Transferrin % Sat 17 % (14-50) 01/20/17 05:55 Total Bilirubin 1.1 mg/dL (0.2-1.3) 01/21/17 06:07 Direct Bilirubin 0.2 mg/dL (0.0-0.4) 01/20/17 05:55 AST 108 U/L (17-59) H 01/21/17 06:07 ALT 89 U/L (21-72) H 01/21/17 06:07 Alkaline Phosphatase 130 U/L (38-126) H 01/21/17 06:07 C-Reactive Protein > 90.0 mg/L (<10.0) H 01/20/17 05:55 NT-Pro-B Natriuret Pep 1960 pg/mL (<450) H 01/20/17 05:55 Total Protein 7.2 g/dL (6.3-8.2) 01/21/17 06:07 Albumin 3.2 g/dL (3.5-5.0) L 01/21/17 06:07 Albumin/Globulin Ratio 0.8 01/21/17 06:07 Amylase < 30 U/L (30-110) L 01/21/17 06:07 Vitamin B12 755 pg/mL (230-1050) 01/20/17 05:55 Folic Acid 9.8 ng/mL (3.0-16.0) 01/20/17 05:55 Urine Color Dark yellow A 01/19/17 22:00 Urine Appearance Clear 01/19/17 22:00 Urine pH 5.5 (5-7) 01/19/17 22:00 Ur Specific [place] 1.020 (0.001-1.035) 01/19/17 22:00 Urine Protein 30mg/dl (1+) (NEG - TRACE) A 01/19/17 22:00 Urine Ketones 5mg/dl (NEGATIVE) A 01/19/17 22:00 Urine Blood Negative (NEGATIVE) 01/19/17 22:00 Urine Nitrate Negative (NEGATIVE) 01/19/17 22:00 Urine Bilirubin 0.5 mg/100ml (1+) (NEGATIVE) A 01/19/17 22:00 Urine Urobilinogen 1mg/dl (normal) (NEG-1mg/dL) 01/19/17 22:00 Ur Leukocyte Esterase Negative (NEGATIVE) 01/19/17 22:00 Urine RBC None seen (0-5/hpf) 01/19/17 22:00 Urine WBC 0-4/hpf (0-4/hpf) 01/19/17 22:00 Ur Squamous Epith Cells None seen (<= 15/hpf) 01/19/17 22:00 Amorphous Sediment Up to 50%/lpf (Up to 25%) 01/19/17 22:00 Urine Bacteria <10 organisms/hpf (<10/hpf) 01/19/17 22:00 Urine Mucus None seen (Up to 25%) 01/19/17 22:00 Urine Glucose Normal (NEGATIVE) 01/19/17 22:00 ABO Group Type a 01/20/17 05:55 Rh Factor Positive 01/20/17 05:55 Antibody Screen Negative 01/20/17 05:55 Crossmatch Compatible 01/20/17 05:55 Assessment and Plan - Date of Encounter Date of Encounter: 01/21/17 (1) Fall Status: Acute Assessment and plan: Probably multifactorial including hypoxia and anemia. No serious injury. Neck pain started prior to fall. Current Visit: Yes (2) Hypoxia Status: Acute Assessment and plan: O2, bld transfusion. Current Visit: Yes (3) Anemia Status: Resolved Assessment and plan: 2 unit pRBC iron deficiency - consider workup but will check with oncology first FeSO4 325mg daily Current Visit: Yes (4) Fever Status: Resolved Assessment and plan: Resolved. Current Visit: Yes (5) Lung cancer Status: Chronic Current Visit: Yes (6) Prostate cancer Status: Chronic Current Visit: Yes (7) Bladder cancer Status: Chronic Current Visit: Yes (8) Carotid stenosis Status: Chronic Assessment and plan: Recent L CEA No CVA Current Visit: Yes (9) PAD (peripheral artery disease) Status: Acute Assessment and plan: Symptomatic claudication. Follow up with cardiology. Current Visit: Yes (10) LFT elevation Status: Acute Assessment and plan: Ultrasound showed dilated GB, but no dilated CBD or intrahepatic ducts MRCP showed dilated GB, but no obstruction of CBD Etiology not clear. Possibly cancer related. Will defer to Dr Francis Current Visit: Yes (11) Dilated gallbladder Status: Acute Current Visit: Yes (12) Generalized weakness Status: Acute Assessment and plan: PT Current Visit: Yes - Time Spent With Patient Total time spent with greater than 50% in coordination of care (as documented) at patient's floor/unit and/or counseling patient: (3) Anemia Qualifiers: Anemia type: iron deficiency
[2017-01-21] MEDS: FERROUS SULFATE 325 MG TABLET PO SCH (14:24)
[2017-01-21] MEDS: ACETAMINOPHEN 325 MG TABLET PO PRN (17:41)
[2017-01-21] MEDS: cefTRIAXone SODIUM 1,000 MG in NORMAL SALINE MINI-BAG+ 100 ML IV SCH (17:42)
--- NOTE | 2017-01-21 18:15 | ER PHYSICIAN DOCUMENTATION ---
Physician Documentation [facility] Name:Agusto Sesay Age:76 yrs Sex:Male :1940 Arrival Date:01/19/2017 Time:15:05 Bed4 Private MD:Chet Duarte ED, Tom Disposition: 01/19 19:00 Critical Care: not applicable. Chart complete. tl1 Disposition: 01/19/17 16:57 Admit ordered for All Skinner. Preliminary diagnosis is Pneumonia, Unspecified. - Bed requested for Medical/Surgical. - Condition is Fair. - Problem is new. - Symptoms have improved. 23 HR OBS No HPI: 15:10 This 76 yrs old Male presents to ER via EMS with complaints of Altered Mental tl1 Status. 15:10 The patient presents with confusion, decreased mental status, disorientation, trouble tl1 concentrating. Onset: The symptom(s)/episode began/occurred gradually, today. Possible causes: head injury, sepsis. Associated signs and symptoms: Pertinent positives: cough, dyspnea. Current symptoms: In the emergency department the patient's symptoms have improved. 2 day h/o progressive and now somewhat productive cough. He is brought in by medics after workers and his found him down on the floor. he says he just missed the stool he was trying to sit on by a little bit and that caused him to fall. he says he was not injured and did not hit his head. No h/a. No n/w/t. He does have fairly severe neck pain which is chronic. Denies N/V/D. No visual changes. No urinary symptoms.. Historical: - Allergies: Pepcid; - Home Meds: 1. gabapentin oral 2. pravastatin oral 3. lupron 4. Omeprazole Oral - PMHx: lung cancer; - PSHx: Carotid surgery; - Tetanus: > 10 years. - Ebola Screening: : Patient negative for fever greater than or equal to 101.5 degrees Fahrenheit, and additional compatible Ebola Virus Disease symptoms. - Immunization history: Flu Vaccine < 1 year. - Social history: Smoking status: Patient uses tobacco products, current every day smoker. ROS: 15:30 Constitutional: Positive for body aches, fatigue, fever, malaise, weight loss. tl1 15:30 Respiratory: Positive for cough, shortness of breath, Negative for hemoptysis, orthopnea, pleurisy, wheezing. 15:30 Abdomen/GI: Negative for abdominal pain, nausea, vomiting, diarrhea. 15:30 Neuro: Positive for altered mental status, gait disturbance, headache, Negative for dizziness, speech changes, syncope, near syncope, visual changes, weakness. Exam: 15:30 Constitutional: The patient appears in no acute distress, alert, awake, well developed, tl1 well groomed, well nourished, febrile, frail. 15:30 Head/face: Exam is negative for acute changes. 15:30 Eyes: Pupils: equal, round, and reactive to light and accomodation. 15:30 ENT: Exam is negative for acute changes. 15:30 Neck: C-spine: vertebral tenderness, that is moderate, diffusely. 15:30 Cardiovascular: Rate: normal, Rhythm: regular, Heart sounds: normal, Edema: is not appreciated, JVD: is not appreciated. 15:30 Respiratory: the patient does not display signs of respiratory distress, Respirations: normal, Breath sounds: decreased breath sounds. 15:30 Abdomen/GI: Inspection: abdomen appears normal, Palpation: abdomen is soft and non-tender. 15:30 Musculoskeletal/extremity: Exam is negative for acute changes. 15:30 Skin: Exam negative for acute changes. 15:30 Neuro: Orientation: to person, place & time. Mentation: appropriate for stated age, Memory: recent memory is impaired, Cranial nerves: grossly normal, Motor: moves all fours, Gait: not tested. Vital Signs: 15:14 Pulse Ox 98% on 2 lpm NC; la 15:14 BP 123 / 57 RA Supine; Pulse 93; Resp 18; Temp 101.7(O); Pulse Ox 79% on R/A; Weight la 65.77 kg (R); Height 5 ft. 10 in. (177.80 cm) (R); Pain 3/10; 16:01 BP 100 / 72 RA Supine; Pulse 85; Resp 18; Pulse Ox 95% on 2 lpm NC; Pain 3/10; la 17:31 BP 104 / 69 RA Supine; Pulse 93; Resp 18 S; Temp 98.9(O); Pulse Ox 93% on 2 lpm NC; la Pain 3/10; 17:48 BP 110 / 54 RA Supine; Pulse 85; Resp 18; Pulse Ox 94% on 2 lpm NC; Pain 3/10; la 18:09 BP 105 / 67 RA Sitting; Pulse 71; Resp 18; Temp 98.0(O); Pulse Ox 94% on 2 lpm NC; Pain la 3/10; 15:14 Body Mass Index 20.80 (65.77 kg, 177.80 cm) la Trauma Score (Adult): 15:10 Eye Response: spontaneous(1); Verbal Response: oriented(1); Motor Response: obeys la commands(2); Systolic BP: > 89 mm Hg(4); Respiratory Rate: 10 to 29 per min(4); Dolly Score: 15; Trauma Score: 12 MDM: 15:19 Patient medically screened. tl1 17:00 Data reviewed: vital signs, nurses notes, old medical records, lab test result(s), CBC, tl1 electrolytes, hepatic panel, urinalysis, radiologic studies, plain films, and as a result, I will admit patient. Test interpretation: by ED physician or midlevel provider: plain radiologic studies. Counseling: I had a detailed discussion with the patient and/or guardian regarding: the historical points, exam findings, and any diagnostic results supporting the discharge/admit diagnosis, lab results, radiology results, the need for further work-up and treatment in the hospital. Medication response: The patient's symptoms have improved. Response to treatment: the patient's symptoms have mildly improved after treatment, and as a result, I will admit patient. Physician consultation: Carla Cedeño MD was called at 16:45, was contacted at 16:50, regarding admission, patient's condition, need to come to ED to see patient, and will see patient immediately. 01/19 16:00 Order name: CBC AUTO DIF, MDIF/RMOR IF IND; Complete Time: 16:59 EDMS 01/19 16:58 Interpretation: WHITE BLOOD COUNT 12.4; HEMOGLOBIN 9.2; HEMATOCRIT 26.8; PLATELET COUNT tl1 738; NEUTROPHILS 82.8. 01/19 16:08 Order name: COMPREHENSIVE METABOLIC PANEL; Complete Time: 16:59 EDMS 06 16:58 Interpretation: Normal Except: SODIUM 133; CHLORIDE 95; ALT 97; ALBUMIN 3.4; ALKALINE tl1 PHOSPHATASE 146; AST 111. 01/19 16:08 Order name: MAGNESIUM; Complete Time: 16:59 EDMS 01/19 16:58 Interpretation: Normal: MAGNESIUM 2.2. tl1 01/19 16:08 Order name: BNP,NT-PRO; Complete Time: 16:59 EDMS 01/19 16:58 Interpretation: Abnormal: BNP,NT-PRO 1690. tl1 01/19 18:10 Order name: HEPATIC PANEL EDMS 01/19 23:11 Order name: UA W/ MICRO -CULTURE IF IND EDMS 01/20 06:19 Order name: CBC AUTO DIF, MDIF/RMOR IF IND EDMS 01/20 06:28 Order name: BASIC METABOLIC PANEL EDMS 01/20 06:28 Order name: HEPATIC PANEL EDMS 01/20 06:28 Order name: BNP,NT-PRO EDMS 01/20 06:28 Order name: C-REACTIVE PROTEIN EDMS 01/20 08:45 Order name: ABO GROUP EDMS 01/20 08:45 Order name: RH TYPE EDMS 01/20 08:45 Order name: ANTIBODY SCREEN EDMS 01/20 08:45 Order name: CROSSMATCH IMMEDIATE SPIN EDMS 01/20 08:45 Order name: CROSSMATCH IMMEDIATE SPIN EDMS 01/20 09:55 Order name: IRON PANEL EDMS 01/20 15:51 Order name: BLOOD CULTURE EDMS 01/20 15:51 Order name: BLOOD CULTURE EDMS 01/20 16:32 Order name: VITAMIN B12 EDMS 01/20 16:32 Order name: FOLATES EDMS 01/21 07:01 Order name: COMPREHENSIVE METABOLIC PANEL EDMS 01/21 07:01 Order name: AMYLASE EDMS 01/21 07:28 Order name: CBC AUTO DIF, MDIF/RMOR IF IND EDMS 01/19 21:39 Order name: CXR 2V [id number] EDMS 01/19 21:40 Order name: CERVICAL SPINE; 2+V [id number] EDMS 01/20 12:31 Order name: US ABDOMEN, COMPLETE [id number] EDMS 01/20 13:51 Order name: MRCP W/WO EDMS 01/19 15:45 Order name: Oxygen; Complete Time: 15:45 la Dispensed Medications: 16:13 Drug: Tylenol 1000 mg; Route: PO; la 16:24 Follow up: Response: No adverse reaction la 17:54 Follow up: Response: Temperature is decreased la 17:40 Dru grams of (cefTRIAXone 1 grams, NS 0.9% 100 ml); Route: IVPB; Infused Over: 30 la mins; Site: left antecubital; 17:54 Follow up: Response: No adverse reaction la 18:15 Follow up: IV Status: Infusion continued upon admission la 17:40 Drug: Zithromax 500 mg; Route: PO; la 17:54 Follow up: Response: No adverse reaction la Signatures: Angela Hathaway Tom, MD MD tl1
[2017-01-21] MEDS: PRAVASTATIN SODIUM 40 MG TABLET PO SCH (21:17)
[2017-01-22] MEDS: ACETAMINOPHEN 325 MG TABLET PO PRN ×2 (02:05→12:11)
[2017-01-22 06:43] LABS: BASOPHILS 0.3 % (0.0-2.0); EOSINOPHILS 0.3 % (0.0-6.0); HEMATOCRIT 34.3 % (42.0-54.0); HEMOGLOBIN 11.8 g/dL (14.0-18.0); LYMPHOCYTES 4.4 % (20.0-40.0); LYMPHOCYTES# 0.5 X 10^3uL (0.8-3.8); MEAN CELL VOLUME 92.4 fL (80.0-100.0); MEAN CORPUS. HGB CONCENTRATION 34.3 g/dL (32.0-36.0); MEAN CORPUSCULAR HEMOGLOBIN 31.7 pg (29.0-35.0); MEAN PLATELET VOLUME 7.2 fL (7.4-10.4); MONOCYTES 9.2 % (2.0-10.0); MONOCYTES# 1.1 X 10^3uL (0.2-1.0); NEUTROPHILS# 10.6 X 10^3uL (2.6-6.7); PLATELET COUNT 782 X 10^3uL (130-440); RED BLOOD COUNT 3.71 X 10^6uL (4.20-6.10); RED CELL DISTRIBUTION WIDTH 16.8 % (11.5-14.5); WHITE BLOOD COUNT 12.2 X 10^3uL (3.9-10.7)
[2017-01-22 06:51] VITALS: RESP 16; TEMP 98.1
[2017-01-22] MEDS: PANTOPRAZOLE 40 MG TABLET PO SCH (06:53)
[2017-01-22] MEDS: GUAIFENESIN ER 600 MG TABLET PO SCH (06:53)
[2017-01-22 07:06] LABS: A/G RATIO 0.7; ALBUMIN 2.8 g/dL (3.5-5.0); ALKALINE PHOSPHATASE 128 U/L (38-126); ALT 128 U/L (21-72); AST 154 U/L (17-59); BILIRUBIN, TOTAL 0.9 mg/dL (0.2-1.3); BLOOD UREA NITROGEN 8 mg/dL (9-20); CALCIUM 8.5 mg/dL (8.4-10.2); CHLORIDE 102 mmol/L (98-107); EST GLOMERULAR FILTRATION RATE > 60 mL/min; GLUCOSE 104 mg/dL (70-100); POTASSIUM 3.9 mmol/L (3.5-5.1); SODIUM 136 mmol/L (137-145); TOTAL PROTEIN 6.6 g/dL (6.3-8.2)
[2017-01-22 07:13] LABS: NEUTROPHILS 85.8 % (54.0-75.0)
[2017-01-22] MEDS: CLOPIDOGREL BISULFATE 75 MG TABLET PO SCH (09:00)
[2017-01-22] MEDS: GABAPENTIN 300 MG CAPSULE PO SCH (09:00)
[2017-01-22] MEDS: FERROUS SULFATE 325 MG TABLET PO SCH (09:00)
[2017-01-22] MEDS: AZITHROMYCIN 250 MG TABLET PO SCH (09:00)
[2017-01-22] MEDS: POTASSIUM CHLORIDE ER 20 MEQ TABLET PO SCH (09:01)
[2017-01-22 11:40] VITALS: BP 139/88; PULSE 103
[2017-01-22 12:35] VITALS: O2SAT 92
--- NOTE | 2017-01-22 13:09 | PROGRESS NOTE: IM SOAP ---
IM: PN Subjective Interval history: Neck pain, improving No F/C Hypoxia on O2 with RA pulse ox 72%, need O2 @ 2 l/min Confusion resolved Dry cough, resolved No abd pain. Had brown BM Able to ambulate into hallway and down hallway a bit with walker and assist. Not safe on stairs without assist. IM: PN Objective Exam - I&O/Vital Signs I&O: Intake & Output 01/21/17 01/22/17 01/22/17 21:59 05:59 13:59 Intake Total 1540 300 822 Output Total 626 100 1 Balance 914 200 821 Intake: IV 822 Left Forearm 822 Oral 1540 300 Output: Urine 625 100 Stool 1 1 Other: Urine Appearance Clear Clear Clear Urine Color Straw Light Yen Light Yen Light Yen Stool Size Moderate Moderate Stool Characteristics Soft Soft Formed Formed Voiding Method Urinal Urinal Urinal # Voids 2 Vital Signs: Last Vital Signs Temp 36.7 C 01/22/17 11:00 Pulse 103 H 01/22/17 11:00 Resp 16 01/22/17 11:00 BP 139/88 01/22/17 11:00 Pulse Ox 92 01/22/17 12:34 Oxygen Flow Rate 2 Oxygen Delivery Method Nasal Cannula - Neck Neck exam: Present: tenderness (bilat paracervical muscles). Absent: full ROM ( pain with neck extension and rotation), lymphadenopathy - Respiratory Respiratory exam: Present: decreased breath sounds (bibasilar). Absent: rales, rhonchi, wheezes - Cardiovascular Cardiovascular exam: Present: RRR. Absent: systolic murmur - GI/Abdominal GI/Abdominal exam: Present: normal bowel sounds, soft. Absent: organomegaly, tenderness (no RUQ or epigastric tenderness) - Extremities Exam Extremities exam: Absent: calf tenderness, Deborah's Sign, edema - Lab Labs: Laboratory Last Values WBC 12.2 X 10^3uL (3.9-10.7) H 01/22/17 06:20 RBC 3.71 X 10^6uL (4.20-6.10) L 01/22/17 06:20 Hgb 11.8 g/dL (14.0-18.0) L 01/22/17 06:20 Hct 34.3 % (42.0-54.0) L 01/22/17 06:20 MCV 92.4 fL (80.0-100.0) 01/22/17 06:20 MCH 31.7 pg (29.0-35.0) 01/22/17 06:20 MCHC 34.3 g/dL (32.0-36.0) 01/22/17 06:20 RDW 16.8 % (11.5-14.5) H 01/22/17 06:20 Plt Count 782 X 10^3uL (130-440) H 01/22/17 06:20 MPV 7.2 fL (7.4-10.4) L 01/22/17 06:20 Neutrophils % 85.8 % (54.0-75.0) H 01/22/17 06:20 Lymphocytes % 4.4 % (20.0-40.0) L 01/22/17 06:20 Eosinophils % 0.3 % (0.0-6.0) 01/22/17 06:20 Basophils % 0.3 % (0.0-2.0) 01/22/17 06:20 Neutrophils # 10.6 X 10^3uL (2.6-6.7) H 01/22/17 06:20 Lymphocytes # 0.5 X 10^3uL (0.8-3.8) L 01/22/17 06:20 Monocytes 9.2 % (2.0-10.0) 01/22/17 06:20 Monocytes # 1.1 X 10^3uL (0.2-1.0) H 01/22/17 06:20 Eosinophils # 0.0 X 10^3uL (0.0-0.4) 01/22/17 06:20 Basophils # 0.0 X 10^3uL (0.0-0.1) 01/22/17 06:20 Sodium 136 mmol/L (137-145) L 01/22/17 06:20 Potassium 3.9 mmol/L (3.5-5.1) 01/22/17 06:20 Chloride 102 mmol/L (98-107) 01/22/17 06:20 Carbon Dioxide 25 mmol/L (22-30) 01/22/17 06:20 BUN 8 mg/dL (9-20) L 01/22/17 06:20 Creatinine 0.6 mg/dL (0.7-1.3) L 01/22/17 06:20 GFR Calculation > 60 mL/min 01/22/17 06:20 Glucose 104 mg/dL (70-100) H 01/22/17 06:20 Calcium 8.5 mg/dL (8.4-10.2) 01/22/17 06:20 Magnesium 2.2 mg/dL (1.6-2.3) 01/19/17 15:15 Iron 26 ug/dL (49-181) L 01/20/17 05:55 TIBC 153 ug/mL (250-400) L 01/20/17 05:55 Transferrin 103 mg/dL (206-381) L 01/20/17 05:55 Transferrin % Sat 17 % (14-50) 01/20/17 05:55 Total Bilirubin 0.9 mg/dL (0.2-1.3) 01/22/17 06:20 Direct Bilirubin 0.2 mg/dL (0.0-0.4) 01/20/17 05:55 AST 154 U/L (17-59) H 01/22/17 06:20 ALT 128 U/L (21-72) H 01/22/17 06:20 Alkaline Phosphatase 128 U/L (38-126) H 01/22/17 06:20 C-Reactive Protein > 90.0 mg/L (<10.0) H 01/20/17 05:55 NT-Pro-B Natriuret Pep 1960 pg/mL (<450) H 01/20/17 05:55 Total Protein 6.6 g/dL (6.3-8.2) 01/22/17 06:20 Albumin 2.8 g/dL (3.5-5.0) L 01/22/17 06:20 Albumin/Globulin Ratio 0.7 01/22/17 06:20 Amylase < 30 U/L (30-110) L 01/21/17 06:07 Vitamin B12 755 pg/mL (230-1050) 01/20/17 05:55 Folic Acid 9.8 ng/mL (3.0-16.0) 01/20/17 05:55 Urine Color Dark yellow A 01/19/17 22:00 Urine Appearance Clear 01/19/17 22:00 Urine pH 5.5 (5-7) 01/19/17 22:00 Ur Specific [employer] 1.020 (0.001-1.035) 01/19/17 22:00 Urine Protein 30mg/dl (1+) (NEG - TRACE) A 01/19/17 22:00 Urine Ketones 5mg/dl (NEGATIVE) A 01/19/17 22:00 Urine Blood Negative (NEGATIVE) 01/19/17 22:00 Urine Nitrate Negative (NEGATIVE) 01/19/17 22:00 Urine Bilirubin 0.5 mg/100ml (1+) (NEGATIVE) A 01/19/17 22:00 Urine Urobilinogen 1mg/dl (normal) (NEG-1mg/dL) 01/19/17 22:00 Ur Leukocyte Esterase Negative (NEGATIVE) 01/19/17 22:00 Urine RBC None seen (0-5/hpf) 01/19/17 22:00 Urine WBC 0-4/hpf (0-4/hpf) 01/19/17 22:00 Ur Squamous Epith Cells None seen (<= 15/hpf) 01/19/17 22:00 Amorphous Sediment Up to 50%/lpf (Up to 25%) 01/19/17 22:00 Urine Bacteria <10 organisms/hpf (<10/hpf) 01/19/17 22:00 Urine Mucus None seen (Up to 25%) 01/19/17 22:00 Urine Glucose Normal (NEGATIVE) 01/19/17 22:00 ABO Group Type a 01/20/17 05:55 Rh Factor Positive 01/20/17 05:55 Antibody Screen Negative 01/20/17 05:55 Crossmatch Compatible 01/20/17 05:55 Assessment and Plan - Date of Encounter Date of Encounter: 01/22/17 (1) Fall Status: Acute Assessment and plan: Probably multifactorial including hypoxia and anemia. No serious injury. Neck pain started prior to fall. Current Visit: Yes (2) Hypoxia Status: Acute Assessment and plan: Home O2 @ 2 l/min Current Visit: Yes (3) Anemia Status: Resolved Assessment and plan: 2 unit pRBC iron deficiency - consider workup but will check with oncology first FeSO4 325mg daily Current Visit: Yes (4) Fever Status: Resolved Assessment and plan: Resolved. Current Visit: Yes (5) Lung cancer Status: Chronic Assessment and plan: with associated hypoxia Current Visit: Yes (6) Prostate cancer Status: Chronic Current Visit: Yes (7) Bladder cancer Status: Chronic Current Visit: Yes (8) Carotid stenosis Status: Chronic Assessment and plan: Recent L CEA No CVA Current Visit: Yes (9) PAD (peripheral artery disease) Status: Acute Assessment and plan: Symptomatic claudication. Follow up with cardiology. Current Visit: Yes (10) LFT elevation Status: Acute Assessment and plan: Ultrasound showed dilated GB, but no dilated CBD or intrahepatic ducts MRCP showed dilated GB, but no obstruction of CBD Etiology not clear. Possibly cancer related. Will defer to Dr Francis Current Visit: Yes (11) Dilated gallbladder Status: Acute Current Visit: Yes (12) Generalized weakness Status: Acute Assessment and plan: PT improving D/C home Current Visit: Yes - Time Spent With Patient Total time spent with greater than 50% in coordination of care (as documented) at patient's floor/unit and/or counseling patient: (3) Anemia Qualifiers: Anemia type: iron deficiency
--- NOTE | 2017-01-22 14:45 | DISCHARGE SUMMARY ---
DATE OF ADMISSION: 01/19/17 DATE OF DISCHARGE: 01/22/17 DIAGNOSES 1. Fall, probably multifactorial including hypoxia and anemia. 2. Profound hypoxia, requiring oxygen 2 liters per minute nasal prongs, presumably related to lung cancer and anemia. 3. Anemia, status post transfusion with 2 units of packed red blood cells. Iron deficiency and is now on ferrous sulfate. 4. Fever of unclear etiology or source, resolved. 5. Lung cancer. 6. Prostate cancer. 7. Bladder cancer. 8. Carotid stenosis status post recent right CEA. 9. Peripheral arterial disease, with symptomatic claudication. 10. Elevated liver function tests with negative initial workup and unclear etiology, possibly cancer related. 11. Dilated gallbladder on ultrasound. 12. Generalized weakness, improving. 13. Hypokalemia, corrected. PROCEDURES: MRCP. Abdominal ultrasound. HISTORY OF PRESENT ILLNESS: This is a 76-year-old male with primary lung cancer , prostate cancer and bladder cancer, who has right carotid stenosis with recent right carotid angioplasty and stent placement 2 weeks prior to admission. The patient was brought into the emergency room because he had about 4 falls in the last couple of weeks. The patient was noted to be somewhat confused and disoriented by EMS. EMS noted a temp of 101.7 and he was hypoxic with room air pulse oximetry of 70% requiring oxygen 2 liters per minute by nasal prongs. He had a mild dry, nonproductive cough. No shortness of breath or edema. He has had some paracervical neck muscle pain being treated with a muscle relaxer tinzanidine. No obvious source of the fever. Please see previously dictated history and physical by Dr. Cedeño for further details. HOSPITAL COURSE: The patient was brought in for multiple falls and was noted to be profoundly anemic and hypoxic. His iron levels were low and B12 and folate levels were normal. He was given 2 units of packed red blood cells and H &H fabrizio from 8.2/24.0 to 11.8/34.3 at the time of discharge. Platelets were elevated in the 674,000-782,000 range during his hospital stay and his WBC count was 10.6-12.5 range. He was treated prophylactically with Rocephin and Z- Gee although no obvious source of the fever was found. Irregardless, his confusion dramatically improved and his mental status was close to baseline at the time of discharge. In addition, he was noted to have elevated LFTs for which an obvious source or etiology was not found. AST was 73-153 range, ALT in the 80-128 range, alkaline phosphatase in the 118-129 range. Normal amylase. Albumin mildly low in the 2.8-3.2 range. Also his potassium tended to run low and he required several doses of p.o. potassium to correct that. The patient did have an abdominal ultrasound which showed a dilated gallbladder but no dilated common bile duct or intrahepatic ducts. MRCP confirmed a dilated gallbladder but again showed no evidence of dilated common bile duct or intrahepatic duct, liver or pancreatic mass or other signs of obstruction or cancer or stone otherwise. The patient has bilateral pleural effusions and has a left lower lobe lung mass. The patient continues to have symptomatic peripheral arterial disease with claudication and will bee seeing Cardiology in the near future. The patient had profound generalized weakness on admission. He had physical therapy. By the time he was discharged, he was able to walk partially down the hallway with a walker. Will defer to Dr. Francis as to whether there is a need for further workup for iron deficiency anemia and elevated LFTs. Note that stool was guaiac negative and initially was somewhat whitish in appearance. But on subsequent days, it was just normal brown stool. DISCHARGE INSTRUCTIONS: The patient may participate in activities as able. He is to use a walker with ambulation but still needs [id number] with stairs. He is on a regular diet. DISCHARGE FOLLOWUP: He will have a follow up appointment with Dr. Duarte on 01/26/17, belt picker Dr. Richey on 01/26/[address] Francis on 02/08/17. He will be followed by home health care nursing, physical therapy and occupational therapy. Arrangements were made for home oxygen at 2 liters per minute by nasal prongs per [facility]. DISCHARGE MEDICATIONS Tylenol 1000 mg p.o. b.i.d. Aspirin 81 mg p.o. q.day. Plavix 75 mg p.o. q.day. Atorvastatin 40 mg p.o. at bedtime. Calcium 600 mg with vitamin D 400 IU p.o. q.day. Enzalutamide (Xtandi) 160 mg p.o. q.day. Lupron shots. Gabapentin has been increased to 900 mg p.o. b.i.d. Multivitamin 1 tablet p.o. .day. Omeprazole 20 mg p.o. q.day. Ferrous sulfate 325 mg p.o. q.day times 3 months. Ceftin 500 mg p.o. b.i.d. times [address] Francis, Dr. Richey, Dr. Gabriele AYALA
== END 2017-01-22 13:00 | disposition home or self-care (01) | DRG 153 ==
LOC: ER 15:05 → IN 18:11
PROVIDERS: ADMIT Internal Medicine; ATTEND Family Medicine
DX: J01.90 Acute sinusitis, unspecified (principal); M50.30 Other cervical disc degeneration, unspecified cervical region; C61 Malignant neoplasm of prostate; D63.0 Anemia in neoplastic disease; Z19.2 Hormone resistant malignancy status; C34.90 Malignant neoplasm of unspecified part of unspecified bronchus or lung; G30.9 Alzheimer's disease, unspecified; D35.2 Benign neoplasm of pituitary gland; H91.92 Unspecified hearing loss, left ear; H44.521 Atrophy of globe, right eye; Z85.51 Personal history of malignant neoplasm of bladder; K80.20 Calculus of gallbladder without cholecystitis without obstruction; F32.89 Other specified depressive episodes; M15.9 Polyosteoarthritis, unspecified; M85.89 Other specified disorders of bone density and structure, multiple sites; E78.5 Hyperlipidemia, unspecified; W01.0XXA Fall on same level from slipping, tripping and stumbling without subsequent striking against object, initial encounter; Z79.899 Other long term (current) drug therapy; Z74.3 Need for continuous supervision
CPT/HCPCS: 36415; 36430; 71020; 72040; 74183; 76700; 80048; 80053; 80076; 81001; 82150; 82607; 82747; 83540; 83735; 83880; 84466; 85025; 86140; 86850; 86900; 86901; 86920; 87040; 93041; 96365; 99284; 99285; A0425; A0427; E0555; J0696; J1940; J3480; J7030; P9040-BL; Q0144